=== PATIENT | female | born 1950 ===

== ENCOUNTER 2019-09-23 08:17 | Day surgery (SDC) | payer MEDICARE, OTHER, SELFPAY ==
[2019-09-13 14:45] VITALS: BMI 30.4
[2019-09-23] VITALS (7 sets, daily range): BP systolic 127–151; BP diastolic 52–81; PULSE 69–81; RESP 11–16; TEMP 36–36.5; O2SAT 92–97; BMI 30.4
--- NOTE | 2019-09-23 08:45 | DI.RAD.S_ITS ---
PROCEDURE: XR KNEE RT 1TO2V INDICATIONS: post op TECHNIQUE: 2 view(s) of the knee acquired. COMPARISON: None. FINDINGS: Bones: Patient is status post knee joint medial hemiarthroplasty. Hardware components are in expected positions. Visualized bony structures are intact. Soft tissues: Overlying postoperative changes are noted. IMPRESSION: Normal alignment after medial unicompartmental hemiarthroplasty right knee. Dictated by: Dino Pabon M.D. on 09/23/2019 at 13:32 Approved by: Dino Pabon M.D. on 09/23/2019 at 13:33
[2019-09-23] MEDS: LACTATED RINGERS 1,000 ML 42 ML IV ×2 (09:05→12:23)
[2019-09-23] MEDS: ACETAMINOPHEN 325 MG TABLET 975 MG PO (09:07)
[2019-09-23] MEDS: CELECOXIB 200 MG CAPSULE PO (09:08)
[2019-09-23] MEDS: PREGABALIN 75 MG CAPSULE PO (09:10)
--- NOTE | 2019-09-23 10:05 | PM.PREOP ---
Pre-operative Note Interval Note History & Physical reviewed/Exam performed by Physician: Yes Changes to H&P: No
--- NOTE | 2019-09-23 10:15 | PM.OP.1 ---
Operative Date/Time/Diagnoses Date of procedure: 09/23/19 Time of procedure: 12:10 Pre-op diagnosis: Right knee osteoarthritis Post-op diagnosis: same Procedure & Clinicians Procedure: Right medial unicompartmental arthroplasty Same procedure as scheduled: Yes Indications: The patient has had progressively worsening right knee pain with radiographic changes consistent with medial compartment arthritis. Non-operative management has failed and the patient has requested partial knee replacement. The risks, benefits and alternatives to surgery were discussed with the patient prior to proceeding. Risks discussed included, but were not limited to, failure to relieve pain, stiffness, infection, nerve damage, deep venous thrombosis, pulmonary embolism, stroke, coma, heart attack, permanent paralysis and , as well as the potential need for eventual revision of the prosthetic. Surgeon: Mario Alberto Gonzales Manager Intern: Nuria Izquierdo Click Yes if Unassisted: No Anesthesia Type: General and Local Operative Notes Findings: Significant medial compartment osteoarthritis with preservation of the patellofemoral joint. Lateral compartment not visualized. Closure Type: primary Specimen(s): none sent Prosthetic devices, grafts, tissues, transplants, or devices: Implants used in this procedure were manufactured by the [employer] and [employer] and included the ZUK partial knee replacement with a size C right medial femoral component, a size 3 right medial tibial component and a size 3, 9 mm tibial insert. Applied: implant(s) Estimated Blood Loss (mL): 25 Blood products transfused: none Tourniquet time (min): 42 Procedure in detail: The patient was seen in the pre-operative area, where the patient identified the right knee as the operative site and this was marked with my initials. The patient received pre-operative antibiotics, and was taken to the operating room and placed on the operative table in the supine position. After satisfactory anesthesia, a street light servicer supervisor out was performed. The right leg was encircled with a tourniquet about the proximal thigh, and the leg was prepared from the toes to the tourniquet with ChloroPrep in the usual fashion and draped through sterile drapes. The leg was elevated and exsanguinated with Eschmark bandage and the tourniquet inflated to 250 mmHg pressure. The knee was approached through an approximately 10 cm incision on the medial side of the patellar tendon and carried into the knee through a mid vastus arthrotomy. The anterior osteophytes and soft tissues were removed. The combined extra medullary cutting guide was applied and the proximal tibial and distal femoral cuts made. The posterior and chamfer cuts were then made, and the lug holes drilled. The posterior osteophytes and soft tissues were then removed. The posterior capsule was injected with part of a mixture of 60 ml 0.25% Marcaine mixed with 20 ml Exparel and 4 mg of morphine for post-operative pain control. The remainder of this mixture was injected into the capsule and subcutaneous tissues during cement curing. A trial tibial component was then placed and the tibial lug holes created. The femoral trial and the tibial insert were then placed and range of motion checked. Laxity of the medial collateral ligament was confirmed at 2 mm using the ?gina stick?. The trials were then removed. The bone was prepared with pulsatile lavage, and dried with a sponge. Cement was applied and the final prosthetics placed. Excess cement was removed during and after cement curing. After confirming there was no extruded cement posteriorly, the final tibial insert was placed. The knee was copiously irrigated and the tourniquet deflated. Hemostasis was obtained. The capsule was closed with interrupted # 2 polyester suture and the intramuscular extension closed with 0 Vicryl. The subcutaneous layer was closed with 3-0 Vicryl, and the skin with a running 3-0 V-Lock suture and SteriStrips. An Aquacel Ag dressing was applied and the patient was taken to recovery having tolerated the procedure well. Complications: none Post-operative Condition: stable Disposition: PACU Plan for aftercare: The patient will be maintained weight-bearing as tolerated. It is the plan that she will be discharged today if she adequately is able to ambulate for home discharge.
[2019-09-23] MEDS: CEFAZOLIN 2 GM/100 ML FROZ.PIGGY IV (10:58)
[2019-09-23] MEDS: TRANEXAMIC ACID 1,000 MG VIAL 1000 MG INJ ×2 (11:16→12:05)
[2019-09-23] MEDS: BUPIVACAINE 0.25% W/ EPI (PF) 10 ML VIAL 60 ML INJ (11:24)
[2019-09-23] MEDS: BUPIVACAINE LIPOSOME 266 MG/20 ML VIAL INJ (11:24)
[2019-09-23] MEDS: MORPHINE 4 MG/ML INJ INJ (11:24)
--- NOTE | 2019-09-23 11:28 | SUR.OPER ---
Supine on padded OR bed. Pillow under head, arms secured on padded armboards <90 degree abduction. Safety belt across torso. Non-operative leg secured with tape over blanket over lower leg. Operative leg secured in DeMayo/Tono positioner. Foam padded brace at thigh of operative leg.
[2019-09-23] MEDS: OXYCODONE IR 5 MG TABLET PO (12:53)
== END 2019-09-23 13:39 | disposition home or self-care (01) ==
PROVIDERS: PCP Family Medicine; Visit Provider Orthopaedic Surgery
PROC: (CPT 27446; principal; 2019-09-23 10:15)
DX: M17.11 Unilateral primary osteoarthritis, right knee (principal); I10 Essential (primary) hypertension; E03.9 Hypothyroidism, unspecified
CPT/HCPCS: 27446; 73560; C1776; C9290; J0690; J1100; J2270; J2405; J2704; J3010